=== PATIENT | female | born 1975 | race Caucasian/White ===

== ENCOUNTER 2017-11-02 06:33 | Day surgery (SDC) | payer OTHER ==
[~2017-11-02] VITALS: Ht 165.1 cm; Wt 68.9 kg
[~2017-11-02 06:33] MED LIST: MULTIPLE VITAM1 EAC1 PO; NOHOMEMEDS; TRAMADOL HCL50 MG PO
[2017-11-02 06:56] VITALS: BP 137/79
[2017-11-02] MEDS ORDERED: IBUPROFEN800 MG PO (10:44)
[2017-11-02] MEDS ORDERED: PERCOCET 5/31 TABLET PO (10:45)
[2017-11-02 12:35] VITALS: BP 113/67
[2017-11-02 13:35] VITALS: BP 112/69
[2017-11-02 14:42] VITALS: BP 115/67
== END 2017-11-02 15:05 | disposition home or self-care (01) ==
LOC: SDC 06:33
PROVIDERS: Obstetrics & Gynecology
DX: N84.0 Polyp of corpus uteri (principal); D21.9 Benign neoplasm of connective and other soft tissue, unspecified; N92.0 Excessive and frequent menstruation with regular cycle
CPT/HCPCS: 81025; 88307; J0131; J0330; J0690; J1100; J1170; J1885; J2250; J2405; J2710; J2765; J3010; J7643